=== PATIENT | male | born 1965 | race Caucasian/White ===

== ENCOUNTER 2018-02-23 08:12 | Day surgery (SDC) | payer BC ==
[2018-02-07 12:27] VITALS: BMI 27.3
[2018-02-23] MEDS ORDERED: PROPOFOL 20 ML ONE ×2 (08:20)
[2018-02-23 09:01] VITALS: TEMP 97.9
[2018-02-23 11:34] VITALS: BP 126/76; PULSE 52
--- NOTE | 2018-02-27 10:32 | PATH ---
Surgical Pathology Report Patient Name: MARVIN ORTIZ [facility]. Rec. #: [id number] /Age/Gender: 1965 (Age: 52) / M Account: [id number] Location: [facility]-ENDOSCOPY Taken: 02/23/2018 Received: 02/23/2018 Reported: 02/27/2018 Physicians: Shawna Gomez M.D. Specimen(s) Received A: ASCENDING B: 20 CM C: RECTOSIGMOID D: BX DUODENUM E: BX ANTRUM F: BX BODY G: BX GE JUNCTION Clinical History GERD, rule out colon cancer Postoperative diagnosis: Polyps, ulcers, rule out celiac, rule out Medrano's Final Diagnosis A. 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 B. 20 CM, BIOPSY: SUPERFICIAL FRAGMENTS OF ADENOCARCINOMA, WELL TO MODERATELY DIFFERENTIATED. Note: Microsatellite Instability (MSI) studies are being performed and the results will be reported separately in an addendum. C. RECTOSIGMOID, POLYP, POLYPECTOMY: TUBULOVILLOUS ADENOMA WITH HIGH-GRADE DYSPLASIA. THE CAUTERIZED STALK MARGIN IS UNINVOLVED BY ADENOMATOUS CHANGE/HIGH-GRADE DYSPLASIA. D. DUODENUM, BIOPSY: DUODENAL MUCOSA WITH NO PATHOLOGIC FINDINGS. E. ANTRUM, BIOPSY: MILD CHRONIC GASTRITIS. IMMUNOSTAIN IS NEGATIVE FOR H. PYLORI ORGANISMS. F. BODY, BIOPSY: BODY-TYPE MUCOSA WITH MINIMAL CHRONIC INFLAMMATION. IMMUNOSTAIN IS NEGATIVE FOR H. PYLORI ORGANISMS. G. GE JUNCTION, BIOPSY: ESOPHAGOGASTRIC JUNCTIONAL (SQUAMOCOLUMNAR) MUCOSA SHOWING MILD CHRONIC INFLAMMATION AND FEATURES OF REFLUX ESOPHAGITIS. NEGATIVE FOR INTESTINAL METAPLASIA. Electronically Signed Marzena Harvey M.D. Addendum Reported: 03/01/2018 Addendum Diagnosis Immunohistochemical stains for MisMatch Repair Protein Analysis performed at [facility] in [place], [place] ([id number]) and interpreted at [facility] show the following: RESULTS: HMLH-1 INTACT NUCLEAR EXPRESSION HMSH-2 INTACT NUCLEAR EXPRESSION HMSH-6 INTACT NUCLEAR EXPRESSION PMS2 INTACT NUCLEAR EXPRESSION INTERPRETATION: No loss of nuclear expression of MMR proteins: low probability of microsatellite instability-high (MSI-H) Marilia Pichardo M.D. Gross Description A. Received in formalin, labeled "ascending" are multiple arcos, irregular portions of soft tissue measuring 1.2 x 0.6 x 0.2 cm. in aggregate. The specimens are submitted in toto in one cassette. B. Received in formalin labeled "20 cm," is a 1.1 x 0.6 x 0.1 cm aggregate of arcos soft tissue fragments. The formalin is filtered and the specimen is entirely submitted in one cassette. C. Received in formalin labeled "rectosigmoid," are 2 arcos, polypoid portions of soft tissue measuring 1.0 x 0.7 x 0.6 cm and 1.9 x 1.5 x 1.2 cm. The base of the polyps is inked black and the polyps are sectioned. The specimen is entirely submitted in 4 cassettes as follows: 1-one bisected polyp; 2-4-one serially sectioned polyp. D. Received in formalin, labeled "duodenum" are 2 arcos, irregular portions of soft tissue averaging 0.3 cm. in greatest dimension. The specimens are submitted in toto in one cassette. E. Received in formalin, labeled "antrum" are 2 arcos, irregular portions of soft tissue measuring 0.2 and 0.3 cm. in greatest dimension. The specimens are submitted in toto in one cassette. F. Received in formalin, labeled "body" are 2 arcos, irregular portions of soft tissue measuring 0.2 and 0.6 cm. in greatest dimension. The specimens are submitted in toto in one cassette. G. Received in formalin, labeled "GE junction" is a arcos, irregular portion of soft tissue measuring 0.3 cm. in greatest dimension. The specimen is submitted in toto in one cassette. 02/23/2018 saudi02/23/2018
== END 2018-02-23 11:45 | disposition home or self-care (01) ==
LOC: FASU-ENDO 08:12
PROVIDERS: ATTEND Internal Medicine
PROC: 0DB98ZX Excision of Duodenum, Via Natural or Artificial Opening Endoscopic, Diagnostic (ICD-10-PCS; 2018-02-23)
PROC: 0DB68ZX Excision of Stomach, Via Natural or Artificial Opening Endoscopic, Diagnostic (ICD-10-PCS; 2018-02-23)
PROC: 0DB48ZX Excision of Esophagogastric Junction, Via Natural or Artificial Opening Endoscopic, Diagnostic (ICD-10-PCS; 2018-02-23)
PROC: 0DBK8ZX Excision of Ascending Colon, Via Natural or Artificial Opening Endoscopic, Diagnostic (ICD-10-PCS; principal; 2018-02-23 10:08)
PROC: 0DBN8ZX Excision of Sigmoid Colon, Via Natural or Artificial Opening Endoscopic, Diagnostic (ICD-10-PCS; 2018-02-23 10:08)
PROC: 0DBN8ZX Excision of Sigmoid Colon, Via Natural or Artificial Opening Endoscopic, Diagnostic (ICD-10-PCS; 2018-02-23 10:08)
DX: Z12.11 Encounter for screening for malignant neoplasm of colon (principal); K64.8 Other hemorrhoids; D12.2 Benign neoplasm of ascending colon; C19 Malignant neoplasm of rectosigmoid junction; D12.7 Benign neoplasm of rectosigmoid junction; K29.50 Unspecified chronic gastritis without bleeding; K21.0 Gastro-esophageal reflux disease with esophagitis; K44.9 Diaphragmatic hernia without obstruction or gangrene; K26.9 Duodenal ulcer, unspecified as acute or chronic, without hemorrhage or perforation; K25.9 Gastric ulcer, unspecified as acute or chronic, without hemorrhage or perforation
CPT/HCPCS: 88305-TC; 88342-TC